=== PATIENT | female | born 1985 | race Caucasian/White ===

== ENCOUNTER → 2016-11-11 | Outpatient (CLI) | payer BC ==
[~2016-11-11] MED LIST: ACETAMINOPHEN325 M1 PO; ADULT LOW DOSE81 MG PO; ATENOLOL50 MG PO; FLEXERIL10 MG PO; FLONASE 50 MCG16 GM; IBU-8800 MG PO; LEVOTHYROXIN0.112 M1 PO; METHIMAZOLE 1010 MG PO; NICOTINE T21 MG/24 H TD; PRENATAL PLUS1 TA1 PO; ZITHROMAX 250M250 MG PO; ZYRTEC 10MG TAB10 MG PO
== END ==
LOC: LAB 14:13
DX: E05.00 Thyrotoxicosis with diffuse goiter without thyrotoxic crisis or storm (principal)